=== PATIENT | female | born 1960 | race Caucasian/White ===

== ENCOUNTER → 2017-09-19 | Outpatient (CLI) | payer OTHER ==
[~2017-09-19] MED LIST: AMOX875T PO; ASCO10003 PO; B-COTAB18 PO; CHOL100010 PO; GLUCTAB7 PO; NAPR1TAB9 PO
== END | disposition home or self-care (01) ==
LOC: C.LAB1850 10:11
PROVIDERS: ATTEND Physician Assistant
DX: Z00.00 Encounter for general adult medical examination without abnormal findings (principal); R56.9 Unspecified convulsions; L40.9 Psoriasis, unspecified

== ENCOUNTER → 2017-10-08 | Outpatient (CLI) | payer OTHER ==
[~2017-10-08] MED LIST changes: -AMOX875T PO
--- NOTE | 2017-10-08 16:44 | EEG Procedure Note ---
EEG Procedure Note Date of Service Oct 08, 2017. Start / End Times Start Time: 8:15 a.m. End Time: 8:35 a.m. Referring Physician Mary Fernandez PAC History Witnessed seizure-like episode Home Medication List Scheduled Ascorbic Acid (Vitamin C), 10,000 MG PO DAILY B-Complex Vitamins (Vitamin B Complex), 1 TAB PO DAILY Cholecalciferol (Vitamin D), 1 TAB PO DAILY Whggdlctlxs-Wgrgeqyyvdv-Djt C- (Glucosamine Chondroitin), 2 TABS PO QAM Naproxen (Aleve), 440 MG PO QAM Description This is a 21 electrode EEG with a single channel dedicated to limited EKG. The electrodes were placed in accordance with the International 10-20 system. There is a posterior dominant rhythm of 10 hertz which is symmetrically distributed and attenuates with eye opening. There is a normal anterior to posterior organization. Photic stimulation is unremarkable. There is a frontal , symmetric, beta rhythm. There is no focal slowing. No epileptiform abnormalities observed. Interpretation This is a normal appearing EEG demonstrating a normal background rhythm. Clinical Correlation A normal EEG does not completely exclude a diagnosis of epilepsy. Further clinical correlation may be needed.
== END | disposition home or self-care (01) ==
LOC: C.NEUR 07:55
PROVIDERS: ATTEND Physician Assistant
DX: R56.9 Unspecified convulsions (principal)

== ENCOUNTER → 2017-10-15 | Outpatient (CLI) | payer OTHER ==
--- NOTE | 2017-10-15 13:54 | DIAGNOSTIC IMAGING REPORT ---
CAROTID DOPPLER NECK ART CLINICAL HISTORY: 57 years-old Female presenting with I67.82 Chronic cerebral ischemia. TECHNIQUE: Real-time grayscale and color and spectral Doppler ultrasound imaging of the bilateral carotid arteries was performed. NASCET criteria was used in evaluating this study. COMPARISON: None. FINDINGS: RIGHT: Common carotid artery (CCA): Patent. Peak systolic velocity (PSV) 88 cm/s. Internal carotid artery (ICA): Patent. PSV 94 cm/s. End diastolic velocity (EDV) 25 cm/s. ICA/CCA (systolic) ratio: 1.1. External carotid artery (ECA): Patent. PSV 95 cm/s. LEFT: Common carotid artery (CCA): Atherosclerosis. PSV 108 cm/s. Internal carotid artery (ICA): Patent. PSV 100 cm/s. EDV 29 cm/s. ICA/CCA (systolic) ratio: 0.9. External carotid artery (ECA): Patent. PSV 110 cm/s. Retrograde flow through the left vertebral artery with evidence of left subclavian steal. The right subclavian artery demonstrates triphasic waveforms with a PSV of 221 cm/s. The left subclavian artery demonstrates monophasic waveforms with a PSV of 68 cm/s. Blood pressure: Brachial: Right: 183/102 mmHg, Left: 155/97 mmHg. Reference ranges: Stenosis measurements are compared to reference velocity parameters by the Society of Radiologists in Ultrasound (SRU) consensus and Sonographic NASCET index (S-NASCET). SRU Primary parameters: ICA PSV <125 cm/s = normal or less than 50% stenosis; ICA PSV 125-230 cm/s = 50-69% stenosis; ICA PSV >230 cm/s = greater than or equal to 70% stenosis. SRU Additional parameters: ICA/CCA PSV ratio <2 = normal or less than 50% stenosis; ratio 2-4 = 50-69% stenosis; ratio >4 = greater than or equal to 70% stenosis. ICA EDV <40 cm/s = normal or less than 50% stenosis; ICA EDV 40-100 cm/s = 50-69% stenosis; ICA EDV >100 cm/s = greater than or equal to 70% stenosis. S-NASCET parameters: Deceleration spectral broadening + PSV <125 cm/s = less than 50% stenosis; pansystolic spectral broadening + PSV <125 cm/s = 16-49% stenosis; pansystolic spectral broadening + PSV >125 cm/s + EDV <110 cm/s or ICA/CCA PSV ratio 2-4 = 50-69% stenosis; pansystolic spectral broadening + PSV >270 cm/s OR EDV >110 cm/s OR ICA/CCA PSV ratio >4 = 70-79% stenosis; EDV >140 cm/s = 80-99% stenosis. IMPRESSION: 1. No hemodynamically significant stenosis seen within the carotid arteries. 2. 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 3. Systemic hypertension with differential systolic blood pressure in the upper extremities secondary to subclavian steal. Electronically signed by: Bran Perdue M.D. 10/15/2017 1:52 PM Dictated Date/Time: 10/15/2017 1:48 PM
== END | disposition home or self-care (01) ==
LOC: C.ULTR 12:56
PROVIDERS: ATTEND Physician Assistant
DX: I67.82 Cerebral ischemia (principal); I10 Essential (primary) hypertension

== ENCOUNTER → 2017-10-20 | Outpatient (CLI) | payer OTHER ==
[2017-10-20 14:03] LABS: ALKALINE PHOSPHATASE 103 U/L (45-117); ALT/SGPT 31 U/L (12-78); AST/SGOT 30 U/L (15-37); BLOOD UREA NITROGEN 5 mg/dl (7-18); CALCIUM 9.2 mg/dl (8.5-10.1); CARBON DIOXIDE 24 mmol/L (21-32); CREATININE 0.73 mg/dl (0.60-1.20); GLUCOSE 94 mg/dl (70-99); POTASSIUM 4.1 mmol/L (3.5-5.1); SODIUM 130 mmol/L (136-145); TOTAL PROTEIN 7.3 gm/dl (6.4-8.2)
== END | disposition home or self-care (01) ==
LOC: C.LABBC 11:35
PROVIDERS: ATTEND Physician Assistant
DX: E87.1 Hypo-osmolality and hyponatremia (principal)

== ENCOUNTER → 2017-10-24 | Outpatient (CLI) | payer OTHER ==
[2017-10-24 16:54] LABS: BLOOD UREA NITROGEN 4 mg/dl (7-18); CALCIUM 9.1 mg/dl (8.5-10.1); CARBON DIOXIDE 23 mmol/L (21-32); GLUCOSE 84 mg/dl (70-99); SODIUM 132 mmol/L (136-145)
== END | disposition home or self-care (01) ==
LOC: C.LABBC 13:59
PROVIDERS: ATTEND Nurse Practitioner Adult Health
DX: E87.1 Hypo-osmolality and hyponatremia (principal)